=== PATIENT | female | born 1965 | race Hispanic/Latino ===

== ENCOUNTER 2019-06-15 12:40 | Outpatient (CLI) | payer OTHER ==
--- NOTE | 2019-06-15 13:37 | Ultrasound Report ---
LIMITED RIGHT BREAST ULTRASOUND HISTORY: An oval circumscribed upper density on recent mammogram. COMPARISON: 06/03/2019 mammogram FINDINGS: Focused sonographic evaluation upon the upper location of the right breast demonstrates nor mal fibroglandular structures with no mass, cyst or shadowing. IMPRESSION Negative right breast ultrasound. I suspect that the mammographic density is a benign intramammary ly mph node. Recommend routine mammographic screening. BIRADS 1: Negative. Signer Name: Julio Swanson MD Signed: 06/15/2019 1:33 PM Workstation Name: [id number]
== END 2019-06-15 12:41 | disposition home or self-care (01) ==
LOC: SPVWC 12:40
PROVIDERS: ATTEND Surgery
DX: R92.8 Other abnormal and inconclusive findings on diagnostic imaging of breast (principal)